=== PATIENT | female | born 1970 | race Caucasian/White ===

== ENCOUNTER 2016-08-31 19:36 | Emergency (ER) | payer OTHER ==
[~2016-08-31] VITALS: Ht 162.5 cm; Wt 81.6 kg
[~2016-08-31 19:36] MED LIST: DAYPRO600 M1 PO; MEDROL DOSEPAK4 MG PO; MOTRIN800 MG PO; NAPROSYN500 MG PO; NKHM; NO DOLO50 MG/ML; NORCO 325 MG-51 TAB PO; PEN-VEE K500 MG PO; PEN-VK500 MG PO; ROBAXIN750 MG PO; TRAMADOL HCL50 MG PO; TRIMOX500 MG PO; ZITHROMAX Z PA250 MG PO
[2016-08-31 19:42] VITALS: BP 141/82
[2016-08-31] MEDS ORDERED: NAPROSYN500 MG PO (21:18)
[2016-08-31] MEDS ORDERED: CYCLOBENZAPRINE10 MG PO (21:18)
== END 2016-08-31 21:27 | disposition home or self-care (01) ==
LOC: ED 19:36
DX: S40.021A Contusion of right upper arm, initial encounter (principal); F17.200 Nicotine dependence, unspecified, uncomplicated; W19.XXXA Unspecified fall, initial encounter; Y93.89 Activity, other specified; Y92.9 Unspecified place or not applicable; Y99.9 Unspecified external cause status

== ENCOUNTER 2017-08-24 19:50 | Emergency (ER) | payer SELFPAY ==
[~2017-08-24] VITALS: Ht 162.5 cm; Wt 77.1 kg
[~2017-08-24 19:50] MED LIST changes: +CYCLOBENZAPRINE10 MG PO
[2017-08-24 19:56] VITALS: BP 144/87
[2017-08-24] MEDS ORDERED: CLINDAMYCIN150 MG PO (20:06)
[2017-08-24] MEDS ORDERED: NAPROSYN500 MG PO (20:06)
== END 2017-08-24 20:11 | disposition home or self-care (01) ==
LOC: ED 19:50
DX: K02.9 Dental caries, unspecified (principal); F17.200 Nicotine dependence, unspecified, uncomplicated; Z98.51 Tubal ligation status; Z88.6 Allergy status to analgesic agent

== ENCOUNTER 2017-12-27 10:21 | Emergency (ER) | payer SELFPAY ==
[~2017-12-27] VITALS: Wt 86.2 kg
[~2017-12-27 10:21] MED LIST changes: +CLINDAMYCIN150 MG PO
[2017-12-27 10:24] VITALS: BP 134/80
[2017-12-27] MEDS ORDERED: AMOXICILLIN500 M2 PO (11:34)
[2017-12-27] MEDS ORDERED: IBUPROFEN600 MG PO (11:34)
== END 2017-12-27 11:24 | disposition home or self-care (01) ==
LOC: ED 10:21
DX: K02.9 Dental caries, unspecified (principal); Z98.51 Tubal ligation status

== ENCOUNTER 2018-02-22 19:56 | Emergency (ER) | payer SELFPAY ==
[~2018-02-22] VITALS: Ht 162.5 cm; Wt 77.1 kg
[~2018-02-22 19:56] MED LIST changes: +AMOXICILLIN500 M2 PO; +IBUPROFEN600 MG PO
[2018-02-22 19:59] VITALS: BP 108/53
[2018-02-22] MEDS ORDERED: SEPTDS PO (20:12)
[2018-02-22] MEDS ORDERED: KEFLEX500 M1 PO (20:12)
== END 2018-02-22 20:20 | disposition home or self-care (01) ==
LOC: ED 19:56
DX: L02.416 Cutaneous abscess of left lower limb (principal); F17.200 Nicotine dependence, unspecified, uncomplicated

== ENCOUNTER 2018-07-17 18:11 | Emergency (ER) | payer SELFPAY ==
[~2018-07-17] VITALS: Ht 162.5 cm; Wt 79.4 kg
[~2018-07-17 18:11] MED LIST changes: +KEFLEX500 M1 PO; +SEPTDS PO
[2018-07-17 18:12] VITALS: BP 152/55
[2018-07-17] MEDS ORDERED: NAPROSYN500 MG PO ×2 (18:25→18:40)
[2018-07-17] MEDS ORDERED: Zofran4 MG SL ×2 (18:25→18:41)
[2018-07-17] MEDS ORDERED: PENICILLIN VK500 MG PO ×2 (18:25→18:41)
== END 2018-07-17 18:37 | disposition home or self-care (01) ==
LOC: ED 18:11
DX: K04.7 Periapical abscess without sinus (principal); K02.9 Dental caries, unspecified; F17.200 Nicotine dependence, unspecified, uncomplicated; Z79.1 Long term (current) use of non-steroidal anti-inflammatories (NSAID); Z79.2 Long term (current) use of antibiotics

== ENCOUNTER 2020-07-05 19:52 | Emergency (ER) | payer OTHER ==
[~2020-07-05] VITALS: Ht 165.1 cm; Wt 80.7 kg
[~2020-07-05 19:52] MED LIST changes: +PENICILLIN VK500 MG PO; +Zofran4 MG SL
[2020-07-05 20:04] VITALS: BP 141/98
[2020-07-05 21:04] LABS: BILIRUBIN Negative (Negative); BLOOD 2+ (Negative); CLARITY Clear (Clear); COLOR Yellow (Yellow); GLUCOSE Negative (Negative); KETONE Negative (Negative); LEUKO ESTERASE 3+ (Negative); NITRITE Negative (Negative); UROBILINOGEN 0.2 E.U./dl (0.0-1.0)
[2020-07-05 21:23] LABS: BACTERIA 2+; EPITHELIAL CELLS 21-30; WBC 16-20 wbc/hpf (0-5)
[2020-07-05] MEDS ORDERED: CEFUROXIME AXE500 MG PO (22:26)
== END 2020-07-05 22:33 | disposition home or self-care (01) ==
LOC: ED 19:52
PROVIDERS: Physician Assistant
DX: N39.0 Urinary tract infection, site not specified (principal); F17.200 Nicotine dependence, unspecified, uncomplicated; Z79.899 Other long term (current) drug therapy

== ENCOUNTER 2020-10-09 07:11 | Emergency (ER) | payer OTHER ==
[~2020-10-09] VITALS: Ht 162.5 cm; Wt 79.4 kg
[~2020-10-09 07:11] MED LIST changes: +CEFUROXIME AXE500 MG PO
[2020-10-09 07:17] VITALS: BP 147/90
[2020-10-09] MEDS ORDERED: ZOFRAN4 MG PO (07:34)
[2020-10-09] MEDS ORDERED: PENICILLIN-VK500 MG PO (07:34)
== END 2020-10-09 07:52 | disposition home or self-care (01) ==
LOC: ED 07:11
DX: K08.89 Other specified disorders of teeth and supporting structures (principal); R11.0 Nausea; F17.200 Nicotine dependence, unspecified, uncomplicated; Z98.51 Tubal ligation status

== ENCOUNTER → 2021-11-12 | Outpatient (CLI) | payer OTHER ==
[~2021-11-12] MED LIST changes: +PENICILLIN-VK500 MG PO; +ZOFRAN4 MG PO
[2021-11-12 12:14] LABS: BASO % 0.5 % (0.0-1.0); EOS # 0.3 10*3/uL (0.0-0.4); EOS % 3.6 % (1.0-4.0); HEMATOCRIT 48.1 % (37.0-47.0); LYMPH # 1.7 10*3/uL (1.3-4.4); LYMPH % 21.1 % (27.0-41.0); MEAN CELL VOLUME 82.6 fl (81.0-99.0); MEAN CORPUSCULAR HGB 27.5 pg (27.0-31.0); MEAN CORPUSCULAR HGB CONC 33.3 g/dl (33.0-37.0); MEAN PLATELET VOLUME 9.8 fl (9.6-12.3); MONO # 0.4 10*3/uL (0.1-1.0); MONO % 5.1 % (3.0-9.0); NEUT # 5.6 10*3/uL (2.3-7.9); NEUT % 69.5 % (47.0-73.0); PLATELET COUNT AUTOMATED 273 10*3/uL (130-400); RED BLOOD COUNT 5.82 10*6/uL (4.10-5.10); RED CELL DISTRI WIDTH 14.2 % (0-14.5); RETICULOCYTE % 1.12 % (0.50-2.50); WHITE BLOOD COUNT 8.1 10*3/uL (4.8-10.8)
[2021-11-12 12:16] LABS: BILIRUBIN Negative (Negative); BLOOD Trace-Lysed (Negative); CLARITY Clear (Clear); COLOR Yellow (Yellow); GLUCOSE Negative (Negative); KETONE Negative (Negative); LEUKO ESTERASE Trace (Negative); NITRITE Negative (Negative); PH 5.5 (4.5-8.0); SPECIFIC GRAVITY <= 1.005 (1.001-1.030); UROBILINOGEN 0.2 E.U./dl (0.0-1.0)
[2021-11-12 12:51] LABS: BUN 10 mg/dl (7-24); CHLORIDE 108 mmol/L (98-107); CHOLESTEROL 222 mg/dL (<200); CREATININE 0.82 mg/dL (0.55-1.02); GAMMA GLUTAMYL TRANSPEPTIDASE 10 U/L (5-55); IRON 75 ug/dL (50-170); POTASSIUM 4.1 mmol/L (3.5-5.1); SGOT/AST 15 IU/L (3-35); SGPT/ALT 23 U/L (12-78); SODIUM 136 mmol/L (136-145); TOTAL PROTEIN 7.7 gm/dL (6.4-8.2); TRIGLYCERIDES 160 mg/dl (<150); URIC ACID 4.4 mg/dL (2.6-6.0)
[2021-11-12 13:00] LABS: ALKALINE PHOSPHATASE 81 U/L (45-117); LDL CHOLESTEROL 154 mg/dL (9-159); TOTAL IRON BINDING CAPACITY 415 ug/dl (250-450)
[2021-11-12 13:52] LABS: BACTERIA TRACE; WBC 0-2 wbc/hpf (0-5); YEAST TRACE
[2021-11-12 15:13] LABS: FERRITIN 10.5 ng/mL (10.0-291.0); VITAMIN D, 25-HYDROXY 41.1 ng/mL (30-100)
[2021-11-13 05:05] LABS: RHEUMATOID FACTOR <10.0 IU/mL (<14.0)
[2021-11-13 13:05] LABS: ANTI-DSDNA ANTIBODIES <1 IU/mL (0-9)
== END | disposition home or self-care (01) ==
LOC: LAB 11:36
PROVIDERS: ATTEND Family Medicine
DX: R79.89 Other specified abnormal findings of blood chemistry (principal); E55.9 Vitamin D deficiency, unspecified; R07.89 Other chest pain; R53.83 Other fatigue; R06.02 Shortness of breath

== ENCOUNTER → 2022-02-19 | Outpatient (CLI) | payer OTHER ==
[2022-02-19 16:04] LABS: BUN 10 mg/dl (7-24); CREATININE 0.75 mg/dL (0.55-1.02)
== END | disposition home or self-care (01) ==
LOC: LAB 15:38 → CT 16:00
PROVIDERS: ATTEND Urology
DX: K57.30 Diverticulosis of large intestine without perforation or abscess without bleeding (principal); R19.00 Intra-abdominal and pelvic swelling, mass and lump, unspecified site

== ENCOUNTER → 2022-04-23 | Outpatient (CLI) | payer OTHER | END | disposition home or self-care (01) | LOC: US 12:39 | PROVIDERS: ATTEND Urology | DX: D25.2 Subserosal leiomyoma of uterus (principal) ==

== ENCOUNTER → 2022-12-19 | Outpatient (CLI) | payer OTHER ==
[2022-12-19 13:29] LABS: BASO # 0.1 10*3/uL (0.0-0.1); BASO % 0.7 % (0.0-1.0); EOS # 0.2 10*3/uL (0.0-0.4); EOS % 2.6 % (1.0-4.0); HEMATOCRIT 48.7 % (37.0-47.0); LYMPH # 1.8 10*3/uL (1.3-4.4); LYMPH % 24.5 % (27.0-41.0); MEAN CELL VOLUME 86.7 fl (81.0-99.0); MEAN CORPUSCULAR HGB 29.5 pg (27.0-31.0); MEAN CORPUSCULAR HGB CONC 34.1 g/dl (33.0-37.0); MEAN PLATELET VOLUME 9.7 fl (9.6-12.3); MONO # 0.4 10*3/uL (0.1-1.0); MONO % 5.5 % (3.0-9.0); NEUT # 4.9 10*3/uL (2.3-7.9); NEUT % 66.4 % (47.0-73.0); PLATELET COUNT AUTOMATED 296 10*3/uL (130-400); RED BLOOD COUNT 5.62 10*6/uL (4.10-5.10); RED CELL DISTRI WIDTH 13.6 % (0-14.5); RETICULOCYTE % 1.04 % (0.50-2.50); WHITE BLOOD COUNT 7.4 10*3/uL (4.8-10.8)
[2022-12-19 13:32] LABS: BILIRUBIN Negative (Negative); BLOOD 1+ (Negative); CLARITY Clear (Clear); COLOR Yellow (Yellow); GLUCOSE Negative (Negative); KETONE Negative (Negative); LEUKO ESTERASE Negative (Negative); NITRITE Negative (Negative); PH 5.5 (4.5-8.0); UROBILINOGEN 0.2 E.U./dl (0.0-1.0)
[2022-12-19 13:46] LABS: BACTERIA TRACE; WBC 0-2 wbc/hpf (0-5)
[2022-12-19 14:00] LABS: ALKALINE PHOSPHATASE 86 U/L (46-116); BUN 8 mg/dl (9-23); CHLORIDE 104 mmol/L (98-107); CHOLESTEROL 208 mg/dL (<200); GAMMA GLUTAMYL TRANSPEPTIDASE 15 U/L (0-73); LDL CHOLESTEROL 139 mg/dL (9-159); LIPASE 90 U/L (12-53); POTASSIUM 3.9 mmol/L (3.4-5.1); SGPT/ALT 12 U/L (10-49); THYROID STIM HORMONE (HS) 2.003 uIU/ml (0.550-4.780); TOTAL PROTEIN 7.6 gm/dL (6.0-8.0); TRIGLYCERIDES 122 mg/dl (<150)
[2022-12-19 14:01] LABS: VITAMIN D, 25-HYDROXY 64.3 ng/mL (30-100)
[2022-12-20 08:09] LABS: H PYLORI IGG AB 0.53 (0.00-0.79)
[2022-12-22 14:07] LABS: H.PYLORI AB IGM <9.0 units (0.0-8.9)
[2022-12-22 16:07] LABS: H.PYLORI IgA <9.0 units (0.0-8.9)
== END | disposition home or self-care (01) ==
LOC: LAB 12:52
PROVIDERS: ATTEND Family Medicine
DX: E78.5 Hyperlipidemia, unspecified (principal); E55.9 Vitamin D deficiency, unspecified; R79.89 Other specified abnormal findings of blood chemistry; R53.83 Other fatigue; R74.8 Abnormal levels of other serum enzymes

== ENCOUNTER → 2023-01-13 | Outpatient (CLI) | payer OTHER | END | disposition home or self-care (01) | LOC: US 12-08 07:30 | PROVIDERS: ATTEND Family Medicine | DX: D25.2 Subserosal leiomyoma of uterus (principal); N83.292 Other ovarian cyst, left side; N83.291 Other ovarian cyst, right side; K76.0 Fatty (change of) liver, not elsewhere classified ==

== ENCOUNTER 2025-03-03 01:19 | Emergency (ER) | payer OTHER ==
[~2025-03-03] VITALS: Ht 165.1 cm; Wt 93.0 kg
[2025-03-03 01:25] VITALS: BP 142/73
[2025-03-03] MEDS ORDERED: CITALOPRAM40 MG PO (01:30)
[2025-03-03] MEDS ORDERED: BUSPAR15 MG PO (01:30)
[2025-03-03] MEDS ORDERED: HYDROXYZINE PAM25 M1 PO (01:30)
[2025-03-03] MEDS ORDERED: LOSARTAN POTASS25 M1 PO (01:31)
[2025-03-03] MEDS ORDERED: AMOX-CLAV 875-1 EACH PO (02:34)
[2025-03-03] MEDS ORDERED: Amoxicillin/Clavulanate Pota 875 MG TAB PO ONE (02:35)
[2025-03-03] MEDS ORDERED: Acetaminophen/Hydrocodone 5 MG/325 MG TABLET PO ONE (02:40)
== END 2025-03-03 02:42 | disposition home or self-care (01) ==
LOC: ED 01:19
DX: H66.92 Otitis media, unspecified, left ear (principal); I10 Essential (primary) hypertension; Z79.899 Other long term (current) drug therapy